=== PATIENT | female | born 1965 | race Two or more races ===

== ENCOUNTER 2021-08-07 12:59 | Inpatient (IN) | payer OTHER, MEDICAID ==
[~2021-08-07] VITALS: Ht 160 cm; Wt 80.3 kg
[2021-08-07] MEDS ORDERED: SODIUM CHLORIDE 0.9% 1,000 ML IV ONE ×2 (13:30)
[2021-08-07] MEDS ORDERED: LORazepam 2MG/ML-1ML VIAL IV ONE (13:30)
[2021-08-07] MEDS ORDERED: InsuLIN REG 1unit/0.01ml Soln (100units/ml) IV ONE (13:30)
[2021-08-07 15:05] LABS: Albumin 4.1 g/dL (3.4-5.0); Basophils # (auto) 0.1 10 ^3/uL (0-0.2); Basophils % (auto) 0.5 % (0.0-2.0); Calcium 9.5 mg/dL (8.5-10.1); Eosinophils # (auto) 0 10 ^3/uL (0-0.8); Eosinophils % (auto) 0.1 % (0.0-7.0); Hematocrit 45.2 % (36.0-46.0); Hemoglobin 15.1 g/dL (12.2-16.2); Lymphocytes # (auto) 1.4 10 ^3/uL (0.4-5.4); Lymphocytes % (auto) 10.3 % (10.0-50.0); Mean Corpuscular Hemoglobin 31.4 pg (28.0-32.0); Mean Corpuscular Hgb Conc. 33.4 g/dL (32.0-36.0); Mean Corpuscular Volume 93.8 fL (80.0-100.0); Monocytes # (auto) 0.3 10 ^3/uL (0-1.3); Neutrophils # (auto) 11.6 10 ^3/uL (1.6-8.6); Neutrophils % (auto) 87.1 % (37.0-80.0); Red Blood Cells 4.82 10^6/uL (4.0-5.20); Red Cell Distribution Width 13.2 % (11.8-14.3); White Blood Cell 13.3 10^3/uL (4.4-10.8)
[2021-08-07 15:09] LABS: BUN/Creatinine Ratio 18.4; Bilirubin, Total 0.5 mg/dL (0.2-1.0); Total Protein 8.3 g/dL (6.4-8.2)
[2021-08-07] MEDS ORDERED: ENOXAPARIN SOD 80 MG/0.8ML SYRINGE SC ONE (16:00)
[2021-08-07] MEDS ORDERED: LABETALOL HCL 5 MG/ML 4ML SYRINGE IV ONE (16:45)
[2021-08-07 16:47] LABS: Urine Bacteria FEW /hpf (None Seen); Urine Blood Negative /uL (Negative); Urine Specific Gravity 1.017 (1.001-1.035); Urine WBC 3 /hpf (0 - 5)
[2021-08-07] MEDS ORDERED: hydrALAZINE HCL 20 MG/ML VL IV ONE (17:15)
[2021-08-07] MEDS ORDERED: cloNIDine HCL 0.1 MG TAB PO ONE (18:30)
[2021-08-07] MEDS ORDERED: MORPHINE SULFATE 4 MG/ML SYR/VIAL IV ONE (22:00)
[2021-08-07] MEDS ORDERED: ONDANSETRON HCL 4 MG/2 ML VIAL IV ONE (22:00)
[2021-08-07] MEDS ORDERED: ONDANSETRON HCL 4 MG/2 ML VIAL IV PRN (23:15)
[2021-08-07] MEDS ORDERED: ACETAMINOPHEN 325 MG TAB PO PRN (23:15)
[2021-08-07] MEDS ORDERED: NITROGLYCERIN 0.4 MG SL TAB SL PRN (23:15)
[2021-08-07] MEDS ORDERED: cloNIDine HCL 0.1 MG TAB PO PRN (23:15)
[2021-08-07] MEDS ORDERED: SODIUM CHLORIDE 0.9% 1,000 ML IV SCH (23:15)
[2021-08-07] MEDS ORDERED: MORPHINE SULFATE INJECTION 2 MG/ML SYRG IV PRN (23:15)
[2021-08-07] MEDS ORDERED: MORPHINE SULFATE 4 MG/ML SYR/VIAL IV PRN (23:15)
[2021-08-07] MEDS ORDERED: DEXTROSE (50%) 50ML SYRG IV PRN (23:15)
[2021-08-07] MEDS ORDERED: HYDROcodone-ACET 5/325MG TAB PO PRN (23:15)
[2021-08-08] MEDS: ACCU-CHEK COMFORT CURVE STRIP VI SCH ×2 (05:58→13:17)
[2021-08-08] MEDS: InsuLIN REG 1unit/0.01ml Soln (100units/ml) SC SCH ×2 (05:59→13:17)
[2021-08-08 07:08] LABS: Basophils # (auto) 0 10 ^3/uL (0-0.2); Basophils % (auto) 0.3 % (0.0-2.0); Eosinophils # (auto) 0 10 ^3/uL (0-0.8); Hematocrit 39.5 % (36.0-46.0); Hemoglobin 13.4 g/dL (12.2-16.2); Lymphocytes # (auto) 1.7 10 ^3/uL (0.4-5.4); Lymphocytes % (auto) 14.2 % (10.0-50.0); Mean Corpuscular Hemoglobin 31.9 pg (28.0-32.0); Mean Corpuscular Hgb Conc. 33.9 g/dL (32.0-36.0); Monocytes % (auto) 8.5 % (0.0-12.0); Neutrophils # (auto) 9.4 10 ^3/uL (1.6-8.6); Red Cell Distribution Width 13.6 % (11.8-14.3); White Blood Cell 12.3 10^3/uL (4.4-10.8)
[2021-08-08 07:17] LABS: Potassium 3.7 mmol/L (3.5-5.1)
[2021-08-08 07:50] LABS: Albumin 3.4 g/dL (3.4-5.0); BUN/Creatinine Ratio 23.6; Bilirubin, Total 0.4 mg/dL (0.2-1.0); Total Protein 7.2 g/dL (6.4-8.2)
[2021-08-08] MEDS ORDERED: cefTRIAXone 1GM/50ML D5W 50 ML IV SCH (09:00)
[2021-08-08] MEDS ORDERED: METOPROLOL TARTRATE 50 MG TAB PO SCH (10:00)
[2021-08-08] MEDS ORDERED: ASPirin 81 mg TAB PO SCH (10:00)
[2021-08-08] MEDS ORDERED: FAMOTIDINE (10MG/ML) 2ML VL IV SCH (10:00)
[2021-08-08] MEDS ORDERED: INSULIN LISPRO (HUMAN) 100 UNITS/ML ML SC ONE (10:45)
[2021-08-08 15:57] VITALS: BP 114/77
[2021-08-08] MEDS ORDERED: InsuLIN REG 1unit/0.01ml Soln (100units/ml) SC SCH (22:00)
[2021-08-08] MEDS ORDERED: ATORVASTATIN 20 MG TAB PO SCH (22:00)
== END 2021-08-08 16:47 | disposition left against medical advice (07) | DRG 305 ==
LOC: EDBD 12:59 → ER 12:59 → EDUNIT# 12:59 → TELE 23:15
PROVIDERS: ADMIT Nurse Practitioner Family; ATTEND Internal Medicine
DX: I16.1 Hypertensive emergency (principal); N12 Tubulo-interstitial nephritis, not specified as acute or chronic; N17.9 Acute kidney failure, unspecified; E11.65 Type 2 diabetes mellitus with hyperglycemia; F12.90 Cannabis use, unspecified, uncomplicated; F17.210 Nicotine dependence, cigarettes, uncomplicated; F20.9 Schizophrenia, unspecified; F43.10 Post-traumatic stress disorder, unspecified; F41.8 Other specified anxiety disorders; Z53.29 Procedure and treatment not carried out because of patient's decision for other reasons; N18.9 Chronic kidney disease, unspecified; E11.22 Type 2 diabetes mellitus with diabetic chronic kidney disease; Z87.442 Personal history of urinary calculi; Z20.822 Contact with and (suspected) exposure to COVID-19
CPT/HCPCS: 36415; 71045; 74176; 80053; 80061; 81001; 82306; 82962; 83036; 84443; 84484; 85025; 87426; 93005; 96361; 96372; 96374; 96375; G0378; J0696; J1815; J2405; J3490